=== PATIENT | female | born 2000 | race Native Hawaiian/Other Pacific Islander ===

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

== ENCOUNTER 2019-07-29 09:23 | Outpatient (CLI) | payer OTHER | END 2019-07-29 12:42 | disposition home or self-care (01) | LOC: LAB 09:23 → TRG 12:17 → LAB 12:42 | PROVIDERS: ATTEND Nurse Practitioner Women's Health | DX: O36.1930 Maternal care for other isoimmunization, third trimester, not applicable or unspecified (principal); Z3A.29 29 weeks gestation of pregnancy | CPT/HCPCS: 86850; 86900; 86901; 96372; J2790 ==

== ENCOUNTER 2019-11-13 20:03 | Emergency (ER) | payer OTHER ==
--- NOTE | 2019-11-13 20:46 | Emergency Department Report ---
Blank Doc - Documentation Documentation: 19-year-old female that presents with vaginal discharge, foul odor, and vaginal bleeding with pain at the stitches sight. Patient is 6 weeks post op from vaginal delivery. This initial assessment/diagnostic orders/clinical plan/treatment(s) is/are subject to change based on patient's health status, clinical progression and re- assessment by fellow clinical providers in the ED. Further treatment and workup at subsequent clinical providers discretion. Patient/guardians urged not to elope from the ED as their condition may be serious if not clinically assessed and managed. Initial orders include: 1- Patient sent to MAIN ED for further evaluation and treatment 2- labs 3- UA
[2019-11-13 21:32] LABS: Basophils % (Auto) 0.5 % (0.0-1.8); Eosinophils # (Auto) 0.1 K/mm3 (0.0-0.4); Eosinophils % (Auto) 1.2 % (0.0-4.3); Hematocrit 37.9 % (30.3-42.9); Hemoglobin 12.1 gm/dl (10.1-14.3); Lymphocytes % (Auto) 30.4 % (13.4-35.0); Mean Corpuscular HGB Conc 32 % (30-34); Mean Corpuscular Volume 78 fl (79-97); Monocytes # (Auto) 0.5 K/mm3 (0.0-0.8); Monocytes % (Auto) 7.1 % (0.0-7.3); Platelet Count 239 K/mm3 (140-440); Red Blood Count 4.85 M/mm3 (3.65-5.03); Red Cell Distribution Width 17.5 % (13.2-15.2)
[2019-11-13 21:56] LABS: BUN/Creatinine Ratio 14; Blood Urea Nitrogen 10 mg/dL (7-17); Calcium 9.9 mg/dL (8.4-10.2); Hemolysis Index 15
[2019-11-13 23:16] LABS: Bilirubin,Urine NEG (Negative); Blood,Urine LG (Negative); Color,Urine Straw (Yellow); Protein,Urine <15 mg/dL mg/dL (Negative); Urobilinogen,Urine < 2.0 mg/dL (<2.0)
[2019-11-13 23:18] LABS: RBC,Urine > 120.0 /HPF (0.0-6.0); WBC,Urine > 120.0 /HPF (0.0-6.0)
--- NOTE | 2019-11-14 00:50 | Emergency Department Report ---
ED Female HPI - General Chief complaint: Urogenital-Female Stated complaint: 6 WEEKS LABOR COMPLICATIONS Time Seen by Provider: 11/13/19 20:44 Source: patient Mode of arrival: Ambulatory Limitations: No Limitations - History of Present Illness Initial comments: Patient is 19 years old female with no significant past medical history, she is 6-week . Patient presented to the ER complaining of vaginal discharge and itching. Patient also complaining of dysuria for the last 3 days. Patient denied any fever, nausea or vomiting. No abdominal pain or pelvic pain. MD Complaint: vaginal discharge, dysuria -: days(s) (3) Are you Now?: No - Related Data Previous Rx's Medication Instructions Recorded Last Taken Type Amoxicillin 500 mg PO BID #20 capsule 04/24/17 Unknown Rx Ibuprofen [Motrin] 600 mg PO Q8H PRN #15 tablet 04/24/17 Unknown Rx Allergies Allergy/AdvReac Type Severity Reaction Status Date / Time No Known Allergies Allergy Unverified 04/24/17 13:43 ED Review of Systems ROS: Stated complaint: 6 WEEKS LABOR COMPLICATIONS Other details as noted in HPI Comment: All other systems reviewed and negative Respiratory: denies: cough, shortness of breath Cardiovascular: denies: chest pain Genitourinary: dysuria, discharge (Whitish, itchy) Neurological: denies: headache, weakness ED Past Medical Hx - Past Medical History Previous Medical History?: Yes Additional medical history: colitis - Surgical History Past Surgical History?: No - Social History Smoking Status: Never Smoker Substance Use Type: None - Medications Home Medications: Home Medications Medication Instructions Recorded Confirmed Last Taken Type Amoxicillin 500 mg PO BID #20 capsule 04/24/17 Unknown Rx Ibuprofen [Motrin] 600 mg PO Q8H PRN #15 tablet 04/24/17 Unknown Rx ED Physical Exam - General Limitations: No Limitations General appearance: alert, in no apparent distress - Head Head exam: Present: atraumatic, normocephalic, normal inspection - Neck Neck exam: Present: normal inspection, full ROM. Absent: tenderness, meningismus - Respiratory Respiratory exam: Present: normal lung sounds bilaterally - Cardiovascular Cardiovascular Exam: Present: regular rate, normal rhythm, normal heart sounds - GI/Abdominal GI/Abdominal exam: Present: soft, normal bowel sounds. Absent: distended, tenderness, guarding, rebound, rigid, organomegaly, mass, bruit, pulsatile mass, hernia - External exam: Present: other (Patient refused pelvic exam.) - Back Exam Back exam: Absent: CVA tenderness (R), CVA tenderness (L) - Neurological Exam Neurological exam: Present: alert, oriented X3, CN II-XII intact, normal gait, reflexes normal - Psychiatric Psychiatric exam: Present: normal mood - Skin Skin exam: Present: warm, intact ED Course Vital Signs 11/13/19 20:13 Temperature 98.1 F Pulse Rate 81 Respiratory 18 Rate Blood Pressure 115/66 O2 Sat by Pulse 96 Oximetry ED Medical Decision Making - Lab Data Result diagrams: 11/13/19 21:07 11/13/19 21:07 - Medical Decision Making Patient defer pelvic exam. Labs showed a significant UTI and also yeast consistent with possible candidiasis. Patient given prescription for Diflucan and Bactrim and advised to follow-up with her OB doctor in the next 2 to 3 days. Patient also advised to return to the ER if symptoms are not improved. Critical care attestation.: If time is entered above; I have spent that time in minutes in the direct care of this critically ill patient, excluding procedure time. ED Disposition Clinical Impression: Essie infection of genital region, UTI (urinary tract infection) Disposition: - TO HOME OR SELFCARE Is pt being admited?: No Condition: Stable Instructions: Vulvovaginal Candidiasis (ED), Urinary Tract Infection in Women (ED) Referrals: GEO PRADO MD [Primary Care Provider] - 3-5 Days
[2019-11-14 02:04] VITALS: BP 118/72
== END 2019-11-14 01:03 | disposition home or self-care (01) ==
LOC: ED 20:03
DX: B37.3 Candidiasis of vulva and vagina (principal); N39.0 Urinary tract infection, site not specified; Z79.899 Other long term (current) drug therapy
CPT/HCPCS: 36415; 80048; 81001; 84702; 85025; 99283

== ENCOUNTER 2020-01-21 12:38 | Emergency (ER) | payer OTHER ==
--- NOTE | 2020-01-21 13:05 | Event Note ---
ED Screening Note ED Screening Note: not concerned for preg no dc or vag bleeding lmp 3 days ago takes deep breath and lower stomach hurts bilateral also co cp also co l breast pain- not breast feeding; had baby 10/14 no cig/etoh/drugs not concerned for covid no rx hx colitis at age 8 had "2 tubes in kidney that was tied" has appnt Monday with obgyn for breast pain This initial assessment/diagnostic orders/clinical plan/treatment(s) is/are subject to change based on patients health status, clinical progression and re- assessment by fellow clinical providers in the ED. Further treatment and workup at subsequent clinical providers discretion. Patient/guardian urged not to elope from the ED as their condition may be serious if not clinically assessed and managed. Initial orders include: basic labs ua u preg
[2020-01-21 13:07] VITALS: BP 109/74
[2020-01-21 14:00] LABS: HCG Qualitative,Urine Negative (Negative)
[2020-01-21 14:02] LABS: Bacteria,Urine 1+ /HPF (Negative); Bilirubin,Urine NEG (Negative); Blood,Urine NEG (Negative); Color,Urine Yellow (Yellow); Mucus,Urine FEW /HPF; Protein,Urine <15 mg/dL mg/dL (Negative); Urobilinogen,Urine < 2.0 mg/dL (<2.0)
[2020-01-21 14:28] LABS: Basophils % (Auto) 0.2 % (0.0-1.8); Eosinophils # (Auto) 0.2 K/mm3 (0.0-0.4); Eosinophils % (Auto) 2.7 % (0.0-4.3); Hematocrit 37.4 % (30.3-42.9); Hemoglobin 11.8 gm/dl (10.1-14.3); Lymphocytes # (Auto) 1.5 K/mm3 (1.2-5.4); Lymphocytes % (Auto) 20.6 % (13.4-35.0); Mean Corpuscular HGB Conc 32 % (30-34); Mean Corpuscular Volume 77 fl (79-97); Monocytes # (Auto) 0.3 K/mm3 (0.0-0.8); Platelet Count 266 K/mm3 (140-440); Red Blood Count 4.83 M/mm3 (3.65-5.03); Red Cell Distribution Width 14.5 % (13.2-15.2)
--- NOTE | 2020-01-21 14:39 | Emergency Department Report ---
ED Abdominal Pain HPI - General Chief Complaint: Abdominal Pain Stated Complaint: SCOOBY/CP/ABD PAIN Time Seen by Provider: 01/21/20 13:03 Source: patient Mode of arrival: Ambulatory Limitations: No Limitations - History of Present Illness Initial Comments: 19-year-old female presents to the emergency room complaining of lower abdominal pain and headache. Patient states she also hurts and points to her upper abdomen. Patient denies any shortness of breath no fevers no chills had nausea yesterday but no vomiting. Last delivered a baby October 05, 2019. She is not currently breast-feeding and also complains of breast pain to the left breast. Patient reports that she has a history of colitis and has noticed some bright red blood per rectum but not as much as she seen in the past when she was diagnosed at 15 years old. Patient does admit to some dizziness. She last took Tylenol last night patient denies any dysuria no hematuria no vaginal discharge or vaginal bleeding. Patient has an appointment with her AGRICULTURE MECHANIC for breast pain on Monday. Patient's last menstrual period was 01/18/2020. She is on Depakote last shots November 11 neck shot January 26. MD Complaint: abdominal pain Onset/Timin -: days(s) Location: epigastric, suprapubic Radiation: none Severity scale (0 -10): 8 Improves With: nothing Worsens With: movement Associated Symptoms: nausea, hematochezia. denies: vomiting, diarrhea, fever, chills, constipation, dysuria, hematemesis - Related Data LMP Date: 01/18/20 Previous Rx's Medication Instructions Recorded Last Taken Type Amoxicillin 500 mg PO BID #20 capsule 04/24/17 Unknown Rx Ibuprofen [Motrin] 600 mg PO Q8H PRN #15 tablet 04/24/17 Unknown Rx Fluconazole [Diflucan TAB] 100 mg PO BID #2 tablet 11/14/19 Unknown Rx Sulfamethoxazole/Trimethoprim 1 each PO BID #6 tablet 11/14/19 Unknown Rx [Bactrim DS TAB] Nitrofurantoin Mora/M-Cryst 100 mg PO Q12HR 7 Days #14 capsule 01/21/20 Unknown Rx [Macrobid CAP] Allergies Allergy/AdvReac Type Severity Reaction Status Date / Time No Known Allergies Allergy Unverified 04/24/17 13:43 ED Review of Systems ROS: Stated complaint: SCOOBY/CP/ABD PAIN Other details as noted in HPI Comment: All other systems reviewed and negative ED Past Medical Hx - Past Medical History Previous Medical History?: Yes Additional medical history: colitis - Surgical History Past Surgical History?: Yes Additional Surgical History: kidney surgery as a child - Social History Smoking Status: Never Smoker Substance Use Type: None - Medications Home Medications: Home Medications Medication Instructions Recorded Confirmed Last Taken Type Amoxicillin 500 mg PO BID #20 capsule 04/24/17 Unknown Rx Ibuprofen [Motrin] 600 mg PO Q8H PRN #15 tablet 04/24/17 Unknown Rx Fluconazole [Diflucan TAB] 100 mg PO BID #2 tablet 11/14/19 Unknown Rx Sulfamethoxazole/Trimethoprim 1 each PO BID #6 tablet 11/14/19 Unknown Rx [Bactrim DS TAB] Nitrofurantoin Mora/M-Cryst 100 mg PO Q12HR 7 Days #14 capsule 01/21/20 Unknown Rx [Macrobid CAP] ED Physical Exam - General Limitations: No Limitations General appearance: alert, in no apparent distress - Head Head exam: Present: atraumatic, normocephalic - Eye Eye exam: Present: normal appearance - ENT ENT exam: Present: mucous membranes moist - Neck Neck exam: Present: full ROM - Respiratory Respiratory exam: Present: normal lung sounds bilaterally. Absent: respiratory distress, chest wall tenderness (Breasts are symmetrical left breast there is no erythematous nonedematous no tender to palpate nipples has no discharge appreciated.) - Cardiovascular Cardiovascular Exam: Present: regular rate - GI/Abdominal GI/Abdominal exam: Present: soft, tenderness (Epigastric and suprapubic), guarding, normal bowel sounds. Absent: distended - Extremities Exam Extremities exam: Present: normal inspection, full ROM - Back Exam Back exam: Present: normal inspection - Neurological Exam Neurological exam: Present: alert, oriented X3, normal gait - Psychiatric Psychiatric exam: Present: normal affect, normal mood - Skin Skin exam: Present: warm, dry, intact, normal color. Absent: rash ED Course Vital Signs 01/21/20 01/21/20 13:01 13:05 Temperature 98.5 F 98.5 F Pulse Rate 97 H 92 H Respiratory 99 H 16 Rate Blood Pressure 109/74 109/74 O2 Sat by Pulse 99 98 Oximetry ED Medical Decision Making - Lab Data Result diagrams: 01/21/20 13:36 01/21/20 13:34 - Radiology Data Radiology results: report reviewed Report Date:[id number] Status:Finalized Findings [facility] [address] [place] [address] Cat Scan Report Signed Patient: BIJAN LIAO MR#: [id number] : 2000 Acct:[id number] Age/Sex: 19 / F ADM Date: 01/21/20 Loc: ED Attending Dr: Ordering Physician: MAGDIEL MOLINA Date of Service: 01/21/20 Procedure(s): CT abdomen pelvis w con Accession Number(s): [id number] cc: MAGDIEL MOLINA CT ABDOMEN AND PELVIS WITH CONTRAST HISTORY: MAIN: Diffuse abdominal pain with hematochezia OMNIPAQUE 300 100ML. COMPARISON: None. TECHNIQUE: CT images of the abdomen and pelvis were obtained following adm inistration of intravenous contrast. All CT scans at this location are performed using CT dose reduction for ALARA by means of automated exposure control. CONTRAST: 100 ml of intravenous contrast administered. FINDINGS: Lungs/bones: Lung bases are clear. No acute osseous abnormality. Abdomen/pelvis: Liver is enlarged with no focal mass identified. The gallbladder, spleen, pancreas, adrenals, right kidney, and proximal GI tract appear unremarkable. There are tiny cysts in the left kidney. Urinary bladder is unremarkable. There is small amount of pelvic free fluid and bilateral ovarian follicles, all of which is most likely physiologic in a woman of this age. No acute colonic abnormality identified. IMPRESSION: 1. No acute abnormality identified. 2. Probable physiologic findings involving the reproductive organs as above. Signer Name: Renny Perez MD Signed: 01/21/2020 3:32 PM Workstation Name: [id number] Transcribed By: TRACI Dictated By: Renny Perez MD Electronically Authenticated By: Renny Perez MD Signed Date/Time: 01/21/201531 DD/ 29 TD/TT: - Medical Decision Making 19-year-old female presents to the emergency room complaining of lower abdominal pain and headache. Patient states she also hurts and points to her upper abdomen. Patient denies any shortness of breath no fevers no chills had nausea yesterday but no vomiting. Last delivered a baby October 05, 2019. She is not currently breast-feeding and also complains of breast pain to the left breast. Patient reports that she has a history of colitis and has noticed some bright red blood per rectum but not as much as she seen in the past when she was diagnosed at 15 years old. Patient does admit to some dizziness. She last took Tylenol last night patient denies any dysuria no hematuria.. Patient has an appointment with her [employer]IC[employer]URE MECHANIC for breast pain on Monday. Patient's last menstrual period was 01/18/2020. She is on Depakote last shots November 11 neck shot January 26. Complete antibiotics for urinary tract infection. Please follow-up with the colorectal specialist I have listed below for your colitis. Your CT scan is negative for any acute abnormalities. Also follow-up with your primary care provider I have listed [facility] for your convenience. Keep your appointment with your OB doctor for January 26 for your Depo and Monday for your breast issues. Critical care attestation.: If time is entered above; I have spent that time in minutes in the direct care of this critically ill patient, excluding procedure time. ED Disposition Clinical Impression: UTI (urinary tract infection), Hematochezia, History of colitis Disposition: - TO HOME OR SELFCARE Is pt being admited?: No Does the pt Need Aspirin: No Condition: Stable Instructions: Abdominal Pain (ED), Urinary Tract Infection in Women (ED) Additional Instructions: Complete antibiotics for urinary tract infection. Please follow-up with the colorectal specialist I have listed below for your colitis. Your CT scan is negative for any acute abnormalities. Also follow-up with your primary care pr nicholas I have listed [facility] for your convenience. Keep your appointment with your OB doctor for January 26 for your Depo and Monday for your breast issues. Prescriptions: Nitrofurantoin Mora/M-Cryst [Macrobid CAP] 100 mg PO Q12HR 7 Days #14 capsule Referrals: PRIMARY CARE, [Primary Care Provider] - 3-5 Days [facility] [Provider Group] - 3-5 Days [facility] [Provider Group] - 3-5 Days Forms: Work/School Release Form(ED)
[2020-01-21 14:44] LABS: Alanine Aminotransferase 16 units/L (7-56); Albumin 4.4 g/dL (3.9-5); BUN/Creatinine Ratio 19; Blood Urea Nitrogen 13 mg/dL (7-17); Calcium 9.5 mg/dL (8.4-10.2); Hemolysis Index 4
--- NOTE | 2020-01-21 15:37 | Cat Scan Report ---
CT ABDOMEN AND PELVIS WITH CONTRAST HISTORY: MAIN: Diffuse abdominal pain with hematochezia OMNIPAQUE 300 100ML. COMPARISON: None. TECHNIQUE: CT images of the abdomen and pelvis were obtained following administration of intravenous contrast. All CT scans at this location are performed using CT dose reduction for ALARA by means of automated exposure control. CONTRAST: 100 ml of intravenous contrast administered. FINDINGS: Lungs/bones: Lung bases are clear. No acute osseous abnormality. Abdomen/pelvis: Liver is enlarged with no focal mass identified. The gallbladder, spleen, pancreas, adrenals, right kidney, and proximal GI tract appear unremarkable. There are tiny cysts in the left k idney. Urinary bladder is unremarkable. There is small amount of pelvic free fluid and bilateral ovarian fol licles, all of which is most likely physiologic in a woman of this age. No acute colonic abnormality identified. IMPRESSION: 1. No acute abnormality identified. 2. Probable physiologic findings involving the reproductive organs as above. Signer Name: Renny Perez MD Signed: 01/21/2020 3:32 PM Workstation Name: [email or web address]
== END 2020-01-21 17:07 | disposition home or self-care (01) ==
LOC: ED 12:38
DX: N39.0 Urinary tract infection, site not specified (principal); K92.1 Melena; Z79.899 Other long term (current) drug therapy
CPT/HCPCS: 36415; 74177; 80053; 81001; 81025; 83690; 85025; 87086; 99284; Q9967

== ENCOUNTER 2022-02-10 21:02 | Emergency (ER) | payer OTHER ==
[2022-02-10 21:48] VITALS: BP 100/64
[2022-02-10 22:51] LABS: Basophils % (Auto) 0.2 % (0.0-1.8); Eosinophils # (Auto) 0.1 K/mm3 (0.0-0.4); Hematocrit 42.3 % (30.3-42.9); Hemoglobin 14.5 gm/dl (10.1-14.3); Lymphocytes # (Auto) 0.8 K/mm3 (1.2-5.4); Lymphocytes % (Auto) 11.7 % (13.4-35.0); Mean Corpuscular HGB Conc 34 % (30-34); Mean Corpuscular Volume 85 fl (79-97); Monocytes # (Auto) 0.3 K/mm3 (0.0-0.8); Monocytes % (Auto) 3.9 % (0.0-7.3); Platelet Count 214 K/mm3 (140-440)
[2022-02-10 23:04] LABS: Alanine Aminotransferase 18 units/L (7-56); Albumin 4.8 g/dL (3.9-5); Blood Urea Nitrogen 7 mg/dL (7-17); Hemolysis Index 5
[2022-02-10 23:23] LABS: BUN/Creatinine Ratio 12
[2022-02-10 23:30] LABS: Bacteria,Urine 2+ /HPF (Negative); Bilirubin,Urine NEG (Negative); Blood,Urine SM (Negative); Color,Urine Yellow (Yellow); Protein,Urine <15 mg/dL mg/dL (Negative); Urobilinogen,Urine < 2.0 mg/dL (<2.0)
[2022-02-11] MEDS ORDERED: SODIUM CHLORIDE 0.9% 1000 ML 1,000 ML IV ONE (04:01)
--- NOTE | 2022-02-11 04:41 | Emergency Department Report ---
ED Abdominal Pain HPI - General Chief Complaint: Abdominal Pain Stated Complaint: VOMITING/ABD PAIN/HEADACHE Time Seen by Provider: 02/11/22 04:00 Source: patient Mode of arrival: Ambulatory Limitations: No Limitations - History of Present Illness Initial Comments: Patient 21-year-old female who presents for generalized abdominal pain and body aches. Patient states constipation. 4 days ago diarrhea yesterday patient denies fevers or chills. However patient has history of colitis. Concern for same. Abdominal pain at this time is described at 4/10 cramping and aching. As are exacerbated by p.o. intake. Symptoms are relieved by nothing tried. Is not currently on H2 or PPIs , patient denies other complaint. Patient denies vaginal discharge. There is no dysuria frequency or urgency. Last menstrual cycle was 1 week ago. MD Complaint: abdominal pain - Related Data Previous Rx's Medication Instructions Recorded Last Taken Type Amoxicillin 500 mg PO BID #20 capsule 04/24/17 Unknown Rx Ibuprofen [Motrin] 600 mg PO Q8H PRN #15 tablet 04/24/17 Unknown Rx Fluconazole [Diflucan TAB] 100 mg PO BID #2 tablet 11/14/19 Unknown Rx Sulfamethoxazole/Trimethoprim 1 each PO BID #6 tablet 11/14/19 Unknown Rx [Bactrim DS TAB] Nitrofurantoin [place]/M-Cryst 100 mg PO Q12HR 7 Days #14 capsule 01/21/20 Unknown Rx [Macrobid CAP] Ibuprofen [Motrin 800 MG tab] 800 mg PO Q8HR PRN #30 tablet 02/11/22 Unknown Rx cephALEXin [Keflex] 500 mg PO BID 7 Days #14 tab 02/11/22 Unknown Rx polyethylene glycoL 3350 [Miralax 17 gm PO BID PRN #14 packet 02/11/22 Unknown Rx 3350] Allergies Allergy/AdvReac Type Severity Reaction Status Date / Time No Known Allergies Allergy Unverified 04/24/17 13:43 ED Review of Systems ROS: Stated complaint: VOMITING/ABD PAIN/HEADACHE Other details as noted in HPI Constitutional: denies: chills, fever Eyes: denies: eye pain, eye discharge, vision change ENT: denies: ear pain, throat pain Respiratory: denies: cough, shortness of breath, wheezing Cardiovascular: denies: chest pain, palpitations Endocrine: no symptoms reported Gastrointestinal: abdominal pain, diarrhea, constipation. denies: nausea, vomiting, melena Genitourinary: denies: urgency, dysuria, frequency, hematuria, discharge Musculoskeletal: back pain Skin: denies: rash, lesions Neurological: denies: headache, weakness, paresthesias Psychiatric: denies: anxiety, depression Hematological/Lymphatic: denies: easy bleeding, easy bruising ED Past Medical Hx - Past Medical History Additional medical history: colitis - Surgical History Additional Surgical History: kidney surgery as a child - Social History Smoking Status: Never Smoker Substance Use Type: None - Medications Home Medications: Home Medications Medication Instructions Recorded Confirmed Last Taken Type Amoxicillin 500 mg PO BID #20 capsule 04/24/17 Unknown Rx Ibuprofen [Motrin] 600 mg PO Q8H PRN #15 tablet 04/24/17 Unknown Rx Fluconazole [Diflucan TAB] 100 mg PO BID #2 tablet 11/14/19 Unknown Rx Sulfamethoxazole/Trimethoprim 1 each PO BID #6 tablet 11/14/19 Unknown Rx [Bactrim DS TAB] Nitrofurantoin [place]/M-Cryst 100 mg PO Q12HR 7 Days #14 capsule 01/21/20 Unknown Rx [Macrobid CAP] Ibuprofen [Motrin 800 MG tab] 800 mg PO Q8HR PRN #30 tablet 02/11/22 Unknown Rx cephALEXin [Keflex] 500 mg PO BID 7 Days #14 tab 02/11/22 Unknown Rx polyethylene glycoL 3350 [Miralax 17 gm PO BID PRN #14 packet 02/11/22 Unknown Rx 3350] ED Physical Exam - General Limitations: No Limitations General appearance: alert, in no apparent distress - Head Head exam: Present: normocephalic, normal inspection - Eye Eye exam: Present: normal appearance, EOMI Pupils: Present: normal accommodation - ENT ENT exam: Present: mucous membranes moist - Neck Neck exam: Present: normal inspection, full ROM. Absent: tenderness, lymphadenopathy - Respiratory Respiratory exam: Present: normal lung sounds bilaterally. Absent: respiratory distress, wheezes, stridor, chest wall tenderness - Cardiovascular Cardiovascular Exam: Present: regular rate, normal rhythm, normal heart sounds. Absent: systolic murmur, diastolic murmur, rubs, gallop - GI/Abdominal GI/Abdominal exam: Present: soft, tenderness (Bilateral lower abdomen), normal bowel sounds. Absent: distended, guarding, rebound, rigid, bruit, hernia - Expanded GI/Abdominal Exam Expanded GI/Abdominal exam: Absent: psoas sign, obturator sign, heel tap sign, Valdes's sign, Rovsing's sign, tenderness at Mcburney's Point - Rectal Rectal exam: Present: deferred - Extremities Exam Extremities exam: Present: normal inspection, full ROM, normal capillary refill. Absent: tenderness - Back Exam Back exam: Present: normal inspection, full ROM. Absent: CVA tenderness (R), CVA tenderness (L) - Neurological Exam Neurological exam: Present: alert, oriented X3, CN II-XII intact, normal gait - Expanded Neurological Exam Expanded Patient oriented to: Present: person, place, time Speech: Present: fluid speech Best Eye Response ([place]): (4) open spontaneously Best Motor Response ([place]): (6) obeys commands Best Verbal Response ([place]): (5) oriented [place] Total: 15 - Psychiatric Psychiatric exam: Present: normal affect, normal mood - Skin Skin exam: Present: warm, dry, intact, normal color. Absent: rash ED Course Vital Signs 02/10/22 21:47 Temperature 98.6 F Pulse Rate 101 H Respiratory 16 Rate Blood Pressure 100/64 O2 Sat by Pulse 96 Oximetry ED Medical Decision Making - Lab Data Result diagrams: 02/10/22 22:11 02/10/22 22:11 Labs 02/10/22 02/10/22 02/10/22 22:11 22:11 22:11 WBC 6.8 RBC 5.00 Hgb 14.5 H Hct 42.3 MCV 85 MCH 29 MCHC 34 RDW 13.0 L Plt Count 214 Lymph % (Auto) 11.7 L [place] % (Auto) 3.9 Eos % (Auto) 1.0 Baso % (Auto) 0.2 Lymph # (Auto) 0.8 L [place] # (Auto) 0.3 Eos # (Auto) 0.1 Baso # (Auto) 0.0 Seg Neutrophils % 83.2 H Seg Neutrophils # 5.7 Sodium 137 Potassium 4.5 Chloride 100.2 Carbon Dioxide 24 Anion Gap 17 BUN 7 Creatinine 0.6 Estimated GFR > 60 BUN/Creatinine Ratio 12 Glucose 107 H Calcium 10.0 Total Bilirubin 0.40 AST 22 ALT 18 Alkaline Phosphatase 84 Total Protein 8.2 Albumin 4.8 Albumin/Globulin Ratio 1.4 Lipase 19 HCG, Qual Negative Urine Color Urine Turbidity Urine pH Ur Specific [place] Urine Protein Urine Glucose (UA) Urine Ketones Urine Blood Urine Nitrite Urine Bilirubin Urine Urobilinogen Ur Leukocyte Esterase Urine WBC (Auto) Urine RBC (Auto) U Epithel Cells (Auto) Urine Bacteria (Auto) 02/10/22 Unknown WBC RBC Hgb Hct MCV MCH MCHC RDW Plt Count Lymph % (Auto) [place] % (Auto) Eos % (Auto) Baso % (Auto) Lymph # (Auto) [place] # (Auto) Eos # (Auto) Baso # (Auto) Seg Neutrophils % Seg Neutrophils # Sodium Potassium Chloride Carbon Dioxide Anion Gap BUN Creatinine Estimated GFR BUN/Creatinine Ratio Glucose Calcium Total Bilirubin AST ALT Alkaline Phosphatase Total Protein Albumin Albumin/Globulin Ratio Lipase HCG, Qual Urine Color Yellow Urine Turbidity Slightly-cloudy Urine pH 6.0 Ur Specific [place] 1.006 Urine Protein <15 mg/dl Urine Glucose (UA) Neg Urine Ketones Neg Urine Blood Sm Urine Nitrite Neg Urine Bilirubin Neg Urine Urobilinogen < 2.0 Ur Leukocyte Esterase Mod Urine WBC (Auto) 10.0 H Urine RBC (Auto) 1.0 U Epithel Cells (Auto) 26.0 H Urine Bacteria (Auto) 2+ - Radiology Data Radiology results: report reviewed, image reviewed CT ABDOMEN AND PELVIS WITHOUT CONTRAST INDICATION / CLINICAL INFORMATION: r/o obstruction renal. TECHNIQUE: Axial CT images were obtained through the abdomen and pelvis without IV contrast. All CT scans at this location are performed using CT dose reduction for ALARA by means of automated exposure control. COMPARISON: CT from 01/21/2020. FINDINGS: Lower chest unremarkable. Liver, gallbladder, pancreas, spleen, and adrenals demonstrate no significant abnormality. There is no urolithiasis or hydronephrosis. Stable calcifications just posterior to the bladder and the left pelvis. Bladder is unremarkable. There is small volume free fluid in the pelvis with foll icular changes in the ovaries, likely physiologic in this young patient. There is no evidence of bowel obstruction or localized inflammation. Moderate stool in the colon. Normal appendix. No free air. No adenopathy. No acute osseous findings. IMPRESSION: No acute findings of the abdomen or pelvis. No urolithiasis or hydronephrosis. Signer Name: Smith Car MD Signed: 02/11/2022 4:37 AM Workstation Name: [id number] Transcribed By: JS Dictated By: SMITH CAR MD Electronically Authenticated By: SMITH CAR MD Signed Date/Time: 02/11/22436 DD/ 0 TD/TT: Print - Medical Decision Making CT abdomen and pelvis no renal stones no soft tissue abnormality no acute findings. noted moderate stool load to the CT scan,UA noted for leukocytes bacteria, CMP and CBC are normal. Plan DC to home with prescriptions diagnosis constipation, abdominal pain, UTI. Patient advised to hydrate. Take medications as prescribed. Follow-up with primary care doctor in 2 to 3 days. Patient verbalized agreement understanding of discharge plan. Patient DC'd home in stable condition at this time.. Critical care attestation.: If time is entered above; I have spent that time in minutes in the direct care of this critically ill patient, excluding procedure time. ED Disposition Clinical Impression: UTI (urinary tract infection) Qualifiers: Urinary tract infection type: acute cystitis Hematuria presence: without hematuria Qualified Code(s): N30.00 - Acute cystitis without hematuria Constipation Qualifiers: Constipation type: unspecified constipation type Qualified Code(s): K59.00 - Constipation, unspecified Abdominal pain Qualifiers: Abdominal location: lower abdomen, unspecified Qualified Code(s): R10.30 - Lower abdominal pain, unspecified Disposition: 01 HOME / SELF CARE / HOMELESS Is pt being admited?: No Does the pt Need Aspirin: No Condition: Stable Instructions: Abdominal Pain (ED), Constipation, Adult, Constipation, Adult, [id number], Urinary Tract Infection, Adult Additional Instructions: Take medications as prescribed, hydrate as directed. Follow-up with your doctor in 2 to 3 days. Return to emergency department should symptoms worsen. Prescriptions: cephALEXin [Keflex] 500 mg PO BID 7 Days #14 tab polyethylene glycoL 3350 [Miralax 3350] 17 gm PO BID PRN #14 packet PRN Reason: Constipation Ibuprofen [Motrin 800 MG tab] 800 mg PO Q8HR PRN #30 tablet PRN Reason: pain Referrals: DELISA DUMONT MD [Staff Physician] - 3-5 Days Forms: Work/School Release Form(ED) Time of Disposition: 05:14
--- NOTE | 2022-02-11 04:41 | Cat Scan Report ---
CT ABDOMEN AND PELVIS WITHOUT CONTRAST INDICATION / CLINICAL INFORMATION: r/o obstruction renal. TECHNIQUE: Axial CT images were obtained through the abdomen and pelvis without IV contrast. All CT scans at this location are performed using CT dose reduction for ALARA by means of automated exposure control. COMPARISON: CT from 01/21/2020. FINDINGS: Lower chest unremarkable. Liver, gallbladder, pancreas, spleen, and adrenals demonstrate no significa nt abnormality. There is no urolithiasis or hydronephrosis. Stable calcifications just posterior to the bladder and t he left pelvis. Bladder is unremarkable. There is small volume free fluid in the pelvis with follicul ar changes in the ovaries, likely physiologic in this young patient. There is no evidence of bowel obstruction or localized inflammation. Moderate stool in the colon. Nor mal appendix. No free air. No adenopathy. No acute osseous findings. IMPRESSION: No acute findings of the abdomen or pelvis. No urolithiasis or hydronephrosis. Signer Name: Teofilo Gongora MD Signed: 02/11/2022 4:37 AM Workstation Name: [email or web address]
== END 2022-02-11 11:05 | disposition home or self-care (01) ==
LOC: ED 21:02
DX: N39.0 Urinary tract infection, site not specified (principal); K59.00 Constipation, unspecified; R10.9 Unspecified abdominal pain; Z79.899 Other long term (current) drug therapy
CPT/HCPCS: 36415; 74176; 80053; 81001; 83690; 84703; 85025; 87086; 96360; 99284; J7030